=== PATIENT | female | born 1935 | race Caucasian/White ===

== ENCOUNTER → 2024-06-23 09:14 | Outpatient (REF) | payer OTHER, SELFPAY | LOC: HWRAD 09:14 | PROVIDERS: ATTENDING PHYSICIAN Internal Medicine | DX: S80.12XA Contusion of left lower leg, initial encounter (principal); M79.89 Other specified soft tissue disorders | CPT/HCPCS: 73700 ==

== ENCOUNTER → 2025-06-23 13:59 | Outpatient (REF) | payer OTHER, SELFPAY | LOC: HWRAD 13:59 | PROVIDERS: ATTENDING PHYSICIAN Internal Medicine Rheumatology; FAMILY PHYSICIAN Internal Medicine | DX: M81.0 Age-related osteoporosis without current pathological fracture (principal) | CPT/HCPCS: 77080 ==